=== PATIENT | female | born 1955 | race Caucasian/White ===

== ENCOUNTER 2017-03-11 19:18 | Emergency (ER) | payer OTHER ==
[~2017-03-11] VITALS: Ht 177.8 cm; Wt 119.2 kg
[~2017-03-11 19:18] MED LIST: ALBUAER3 INH; CALC250T PO; CHOL10008 PO; HYDR12.57 PO; LEVO25TA4 PO; MAGN250T11 PO; MULTTAB67 PO; OMEP20TA93 PO; VITACAP7 PO
[2017-03-11 19:22] VITALS: BP 190/91; PULSE 87; RESP 18; TEMP 97.6; O2SAT 98
[2017-03-11 20:00] VITALS: BP 182/84
[2017-03-11] MEDS ORDERED: CIPROFLOXACIN 0.3% OPTH SOLN 2.5 ML BTL LEFT EYE ONE (20:00)
[2017-03-11] MEDS ORDERED: PROPARACAINE HCL 0.5% OPHT SOLN 15 ML BTL RIGHT EYE ONE (20:00)
[2017-03-11] MEDS ORDERED: CIPR0.3S2 LEFT EYE (20:09)
--- NOTE | 2017-03-11 20:11 | PD ---
HPI . Corneal abrasion Chief Complaint: Eye Problems/Injury Time Seen by Provider: 19:45 Travel History International Travel<30 days: No Contact w/Intl Traveler<30days: No Traveled to known affect area: No History of Present Illness HPI 61-year-old female presents emergency department for evaluation after she was attempting to place a paperback book and she'll just above her head and the paperback book fell down and struck her in the left eye. Patient states she had immediate left eye pain and burning. Patient is not a contact lens wear. Patient denies any other injuries with this event. PFSH Past Medical History Blood Disorders: No Cancer: No Cardiovascular Problems: No Cystic Fibrosis: Yes Diabetes: No Diminished Hearing: No Endocrine: Yes Genitourinary: No Hepatitis: No Hiatal Hernia: No Hypertension: Yes Immune Disorder: No Medical other: Yes (spinal meningitis ) Musculoskeletal: No Neurologic: No Psychiatric: No Reproductive: No Respiratory: No Thyroid Disease: Yes Tetanus Vaccination: > 5 Years Influenza Vaccination: Yes ?: Not Menopausal: Yes Past Surgical History AICD: No Eye Surgery: Yes (EYE SURGERY INFANT) Joint Replacement: No Pacemaker: No Other Surgery: Yes (BREAST BIOPSY ) Social History Alcohol Use: No Tobacco Use: No Substance Use: No Allergies-Medications (Allergen,Severity, Reaction): Coded Allergies: grapefruit (Unverified Allergy, Severe, Hives, 03/11/17) lemon (Unverified Allergy, Severe, Hives, 03/11/17) orange (Unverified Allergy, Severe, Hives, 03/11/17) penicillin G (Unverified Allergy, Severe, anaphylaxis, 03/11/17) anaphylactic Sulfa (Sulfonamide Antibiotics) (Unverified Allergy, Mild, 03/11/17) rash amlodipine (Unverified Allergy, Unknown, rash, 03/11/17) enalaprilat (Unverified Allergy, Unknown, rash, 03/11/17) erythromycin base (Unverified Allergy, Unknown, unknown for sure, 03/11/17 ) Reported Meds & Prescriptions Reported Meds & Active Scripts Active Ciprofloxacin Opth Drops (Ciprofloxacin HCl) 0.3% Soln 2 Drop LEFT EYE Q2H while awake x 5 days. Hydrochlorothiazide 12.5 Mg Cap 12.5 Mg PO DAILY Levothyroxine (Levothyroxine Sodium) 25 Mcg Tab 25 Mcg PO DAILY Reported Magnesium Oxide 250 Mg Tab 250 Mg PO DAILY Calcium Citrate 250 Mg Calcium Tab 250 Mg PO Multiple Vitamin 1 Tab 1 Tab PO DAILY Vitamin D3 (Cholecalciferol) 1,000 Unit Cap 1,000 Units PO DAILY B Complex (B-Complex Vitamins) 1 Cap 1 Cap PO DAILY Proair Hfa 8.5 GM Inh (Albuterol Sulfate) 90 Mcg/Act Aer 2 Puff INH Q4-6H PRN 108 mcg/actuation Omeprazole 20 Mg Tab 20 Mg PO DAILY Review of Systems Except as stated in HPI: all other systems reviewed are Neg Physical Exam Narrative GENERAL: Well-nourished, well-developed 61-year-old female patient in no acute distress. [id number]. SKIN: Focused skin assessment warm/dry. HEAD: Normocephalic. Atraumatic. EYES: Left eye injected. Fluorescein dye uptake located at 9 o'clock and 5 o' clock over the iris, not in the central vision. PERRLA demonstrated, extraocular motions intact bilaterally. NECK: Supple, trachea midline. No JVD or lymphadenopathy. CARDIOVASCULAR: Regular rate and rhythm without murmurs, gallops, or rubs. RESPIRATORY: Breath sounds equal bilaterally. No accessory muscle use. GASTROINTESTINAL: Abdomen soft, non-tender, nondistended. MUSCULOSKELETAL: No cyanosis, or edema. Data Data Last Documented VS Vital Signs Date Time Temp Pulse Resp B/P (MAP) Pulse Ox O2 Delivery O2 Flow Rate FiO2 03/11/17 20:20 169/83 (111) 03/11/17 19:22 97.6 87 18 98 Orders Orders Proparacaine 0.5% Opth Soln (Alcaine 0.5 (03/11/17 20:00) Ciprofloxacin 0.3% Opth Soln (Ciloxan 0. (03/11/17 20:00) Ed Discharge Order (03/11/17 20:11) [facility] Medical Decision Making Medical Screen Exam Complete: Yes Emergency Medical Condition: Yes Differential Diagnosis Differential diagnoses include but not limited to corneal abrasion, foreign body , corneal ulcer Narrative Course 61-year-old female patient presents emergency department for evaluation of left eye pain after she was struck in the eye with a paper back book. Proparacaine eye drops were administered. Fluorescein eye and Wood lamp was used to evaluate for corneal abrasions. Fluorescein dye uptake noted in the 9 o'clock and 5 o'clock position over the iris, not over the central vision. Patient given a prescription for Cipro ophthalmic eyedrops and discharged home with the instructions to follow-up with an textile colorist dyer. Diagnosis Primary Impression: Corneal abrasion Qualified Codes: S05.02XA - Injury of conjunctiva and corneal abrasion without foreign body, left eye, initial encounter Referrals: Director Of Casework Patient Instructions: Corneal Abrasion (ED), General Instructions Additional Instructions: Please return to emergency department if your symptoms return or worsen. Follow up with your primary care provider. Ciprofloxacin ophthalmic eye drops every 2 hours x 5 days. Follow up with a textile colorist dyer. Med/Other Pt SpecificInfo: Prescription(s) given Scripts Ciprofloxacin Opth Drops (Ciprofloxacin Opth Drops) 0.3% Soln 2 DROP LEFT EYE Q2H for Infection, #1 BOTTLE 0 Refills while awake x 5 days. Prov: Tanika Engel 03/11/17 Disposition: 01 DISCHARGE HOME Condition: Stable Tanika Engel Mar 11, 2017 20:11
[2017-03-11 20:20] VITALS: BP 169/83
== END 2017-03-11 20:20 | disposition home or self-care (01) ==
LOC: PHEFT 19:18
DX: S05.02XA Injury of conjunctiva and corneal abrasion without foreign body, left eye, initial encounter (principal); W20.8XXA Other cause of strike by thrown, projected or falling object, initial encounter; Y93.89 Activity, other specified
CPT/HCPCS: 99283